=== PATIENT | male | born 1975 | race American Indian/Alaskan Native ===

== ENCOUNTER 2018-04-30 15:51 | Emergency (ER) | payer SELFPAY ==
[2018-04-30 16:34] VITALS: BP 131/75
--- NOTE | 2018-04-30 16:37 | Emergency Department Report ---
Blank Doc - Documentation Documentation: pt presents with left foot pain and abrasion sustained ealier today when he was getting out of a car and gf drove off . limping gait xr of left foot ACC evalute
[2018-04-30] MEDS ORDERED: ULTRAM PO ONE (19:35)
--- NOTE | 2018-04-30 19:53 | Emergency Department Report ---
ED Lower Extremity HPI - General Chief Complaint: Extremity Injury, Lower Stated Complaint: LEFT FOOT BROKEN Time Seen by Provider: 04/30/18 16:33 Source: patient Mode of arrival: Ambulatory Limitations: No Limitations - History of Present Illness Initial Comments: pt presents with left foot pain and abrasion sustained ealier today when he was getting out of a car and gf drove off, pt complains of 5/10 Mild swelling 5/10 foot pain with mild swelling and abrasion ,limping gait Complaint: foot injury Onset/Timin -: days(s) Injury: Foot: Right Type of Injury: blunt, eversion Place: home Severity: moderate Severity scale (0 -10): 5 Improves With: nothing Worsens With: weight bearing Context: other (twisted ) Associated Symptoms: swelling, tingling - Related Data Previous Rx's Medication Instructions Recorded Last Taken Type Cyclobenzaprine [Flexeril] 10 mg PO TID PRN #30 tablet 04/30/18 Unknown Rx Naproxen [Naprosyn] 500 mg PO BID PRN #30 tablet 04/30/18 Unknown Rx Neomy/Baci/Polymyx Oint [Triple 1 applicatio TP BID 14 Days #1 tube 04/30/18 Unknown Rx Antibiotic] Allergies Allergy/AdvReac Type Severity Reaction Status Date / Time No Known Allergies Allergy Verified 04/30/18 16:32 ED Review of Systems ROS: Stated complaint: LEFT FOOT BROKEN Other details as noted in HPI Constitutional: denies: chills, fever Eyes: denies: eye pain, eye discharge, vision change ENT: denies: ear pain, throat pain Respiratory: denies: cough, shortness of breath, wheezing Cardiovascular: denies: chest pain, palpitations Endocrine: no symptoms reported Gastrointestinal: denies: abdominal pain, nausea, diarrhea Genitourinary: denies: urgency, dysuria Musculoskeletal: other (foot pain) Skin: denies: rash, lesions Neurological: denies: headache, weakness, paresthesias Psychiatric: denies: anxiety, depression Hematological/Lymphatic: denies: easy bleeding, easy bruising ED Past Medical Hx - Past Medical History Previous Medical History?: No - Surgical History Past Surgical History?: No - Social History Smoking Status: Current Every Day Smoker Substance Use Type: Alcohol, Marijuana - Medications Home Medications: Home Medications Medication Instructions Recorded Confirmed Last Taken Type Cyclobenzaprine [Flexeril] 10 mg PO TID PRN #30 tablet 04/30/18 Unknown Rx Naproxen [Naprosyn] 500 mg PO BID PRN #30 tablet 04/30/18 Unknown Rx Neomy/Baci/Polymyx Oint [Triple 1 applicatio TP BID 14 Days #1 tube 04/30/18 Unknown Rx Antibiotic] ED Physical Exam - General Limitations: No Limitations General appearance: alert, in no apparent distress - Head Head exam: Present: atraumatic, normocephalic - Eye Eye exam: Present: normal appearance, PERRL, EOMI Pupils: Present: normal accommodation - ENT ENT exam: Present: mucous membranes moist - Neck Neck exam: Present: normal inspection - Respiratory Respiratory exam: Present: normal lung sounds bilaterally, respiratory distress - Cardiovascular Cardiovascular Exam: Present: regular rate, normal rhythm. Absent: systolic murmur, diastolic murmur, rubs, gallop - GI/Abdominal GI/Abdominal exam: Present: soft, normal bowel sounds - Rectal Rectal exam: Present: deferred - exam: Present: normal inspection - Extremities Exam Extremities exam: Present: normal inspection, tenderness (right dorsal foot ), normal capillary refill. Absent: pedal edema, joint swelling, calf tenderness - Expanded Lower Extremity Exam Right Foot/Toe exam: Present: full ROM, tenderness, swelling, abrasion (dorsal foot ), erythema. Absent: laceration, ecchymosis, deformity, crepidus, dislocation, amputation, puncture wound, foreign body, calcaneal tenderness, tenderness at base of 5th metatarsal, nail avulsion, subungual hematoma Neuro vascular tendon exam: Present: no vascular compromise. Absent: motor deficit, sensory deficit, tendon deficit Gait: Positive: observed and limited by pain - Back Exam Back exam: Present: normal inspection, full ROM. Absent: tenderness, CVA tenderness (R), CVA tenderness (L) - Neurological Exam Neurological exam: Present: alert, oriented X3, CN II-XII intact, normal gait, reflexes normal. Absent: motor sensory deficit - Psychiatric Psychiatric exam: Present: normal affect, normal mood - Skin Skin exam: Present: warm, dry, intact, normal color. Absent: rash ED Course Vital Signs 04/30/18 16:32 Temperature 98.4 F Pulse Rate 121 H Respiratory 16 Rate Blood Pressure 131/75 O2 Sat by Pulse 99 Oximetry ED Lower Extremity MDM - Radiology Data Radiology results: image reviewed No fracture or soft tissue abnormality - Medical Decision Making This patient Patient was not over the pulses are intact CO2 less than 3 seconds bilaterally range of motion is intact . Negative no fracture or some mild soft tissue swelling and abrasion plan NSAIDs and muscle relaxants Faraz wrap crutches Rice therapy patient will follow up with her in 2-3 days patient will return to ED should symptoms worsen Patient is appropriate for age and patient initiated safe use of crutches DC'd home in stable condition at this time Critical care attestation.: If time is entered above; I have spent that time in minutes in the direct care of this critically ill patient, excluding procedure time. ED Disposition Clinical Impression: Foot sprain Qualifiers: Encounter type: initial encounter Laterality: right Qualified Code(s): S93.601A - Unspecified sprain of right foot, initial encounter Contusion Qualifiers: Encounter type: initial encounter Contusion area: foot Laterality: right Qualified Code(s): S90.31XA - Contusion of right foot, initial encounter Disposition: DC TO HOME OR SELFCARE Is pt being admited?: No Does the pt Need Aspirin: No Condition: Stable Instructions: Crutch Instructions (ED) Prescriptions: Cyclobenzaprine [Flexeril] 10 mg PO TID PRN #30 tablet PRN Reason: Muscle Spasm Naproxen [Naprosyn] 500 mg PO BID PRN #30 tablet PRN Reason: pain Neomy/Baci/Polymyx Oint [Triple Antibiotic] 1 applicatio TP BID 14 Days #1 tube Referrals: [facility] [Other] - 3-5 Days Forms: Work/School Release Form(ED) Time of Disposition: 20:37
--- NOTE | 2018-04-30 21:51 | XRay Report ---
PROCEDURE: XR FOOT 3+V LT TECHNIQUE: Left foot radiographs, AP, lateral, and oblique views. HISTORY: pain,injury COMPARISONS: None . FINDINGS: Fracture (s) and/or Dislocation(s): None . Alignment: Normal . Joint space(s): Normal . Soft tissues: Normal . Bone mineralization: Normal . Foreign bodies: None . Calcaneal spurring: None . IMPRESSION: Normal Examination . This document is electronically signed by Latasha Louis DO., April 30 2018 09:48:33 PM ET
== END 2018-04-30 23:19 | disposition home or self-care (01) ==
LOC: ED 15:51
DX: S93.601A Unspecified sprain of right foot, initial encounter (principal); S90.31XA Contusion of right foot, initial encounter; S90.812A Abrasion, left foot, initial encounter; F17.200 Nicotine dependence, unspecified, uncomplicated; F12.10 Cannabis abuse, uncomplicated; X58.XXXA Exposure to other specified factors, initial encounter; Y93.89 Activity, other specified; Y92.89 Other specified places as the place of occurrence of the external cause; Y99.8 Other external cause status